=== PATIENT | female | born 1985 | race Caucasian/White ===

== ENCOUNTER 2017-03-14 20:14 | Emergency (ER) | payer OTHER ==
[~2017-03-14] VITALS: Ht 152.4 cm; Wt 65.0 kg
[2017-03-14] MEDS ORDERED: NAPROSYN500 MG PO (21:15)
[2017-03-14 21:35] VITALS: BP 130/80
== END 2017-03-14 21:35 | disposition home or self-care (01) | DRG 605 ==
LOC: ED 20:14
DX: S50.01XA Contusion of right elbow, initial encounter (principal); W10.9XXA Fall (on) (from) unspecified stairs and steps, initial encounter; Y92.009 Unspecified place in unspecified non-institutional (private) residence as the place of occurrence of the external cause